=== PATIENT | male | born 1945 | race Caucasian/White ===

== ENCOUNTER 2019-06-12 13:05 | Inpatient (IN) | payer OTHER ==
--- NOTE | 2019-06-12 13:55 | ED ---
Lower Extremity - HPI Summary HPI Summary: This patient is a 74 year old M presenting to ED with a chief complaint of R leg pain since waking up this morning. Patient reports redness and swelling of the R thigh this morning. Patient developed ankle pain throughout the day. This has never happened before. The patient rates the pain 5/10 in severity. Symptoms aggravated by touching the leg and bearing weight. Symptoms alleviated by nothing. Patient reports fever at 100.5 F. - History of Current Complaint Chief Complaint: EDExtremityLower Stated Complaint: PAIN IN RIGHT LEG PER PT Time Seen by Provider: 06/12/19 13:43 Hx Obtained From: Patient Onset of Pain: Hours - Waking up this morning Onset/Duration: Worse Since - Now spread to ankle Severity Initially: Moderate Severity Currently: Moderate Pain Intensity: 5 Pain Scale Used: 0-10 Numeric Timing: Constant, Lasting Hours - Since this morning Location: Is Discrete @ - Right thigh, leg, and ankle Associated Signs And Symptoms: Positive: Swelling, Redness, Fever Aggravating Factor(s): Weight Bearing, Other - Touching the leg Alleviating Factor(s): Nothing - Allergies/Home Medications Allergies/Adverse Reactions: Allergies Allergy/AdvReac Type Severity Reaction Status Date / Time Penicillins Allergy Severe Anaphylatic Verified 06/12/19 13:12 Shock Home Medications: Home Medications Ibuprofen TAB* [Advil TAB*] 200 mg PO Q8H PRN 06/12/19 [History Confirmed ] PMH/Surg Hx/FS Hx/Imm Hx Endocrine/Hematology History: Denies: Hx Diabetes Cardiovascular History: Denies: Hx Deep Vein Thrombosis, Hx Hypertension Respiratory History: Denies: Hx Pulmonary Embolism Infectious Disease History: No Infectious Disease History: Denies: Traveled Outside the [place] in Last 30 Days - Family History Known Family History: Positive: Other - DVT after surgery, CVA - Social History Alcohol Use: None Hx Substance Use: No Substance Use Type: Reports: None Hx Tobacco Use: No Smoking Status (MU): Never Smoked Tobacco Review of Systems Positive: Fever - 100.5 F Musculoskeletal: Other - R thigh, leg, and ankle erythema and swelling All Other Systems Reviewed And Are Negative: Yes Physical Exam - Summary Physical Exam Summary: Constitutional: Well-developed, Well-nourished, Alert. (-) Distressed Skin: Warm, Dry HENT: Normocephalic; Atraumatic Eyes: Conjunctiva normal Neck: Musculoskeletal ROM normal neck. (-) JVD, (-) Stridor, (-) Nuchal rigidity Cardio: Rhythm regular, rate normal, Heart sounds normal; Intact distal pulses; Radial pulses are 2+ and symmetric. (-) Murmur Pulmonary/Chest wall: Effort normal. (-) Respiratory distress, (-) Wheezes, (-) Rales Abd: Soft, (-) tenderness, (-) Distension, (-) Guarding, (-) Rebound Musculoskeletal: tenderness to palpation to the calf and inner thigh of the right leg, 2+ DP pulse of the right leg, circumferential erythema from the proximal ankle to the knee with streaking erythema of the right anterior thigh c /w lymphangitis Lymph: (-) Cervical adenopathy Neuro: Alert, Oriented x3 Psych: Mood and affect Normal Triage Information Reviewed: Yes Vital Signs On Initial Exam: Initial Vitals Temp Pulse Resp BP Pulse Ox 100.5 F 90 16 135/72 95 06/12/19 13:06 06/12/19 13:06 06/12/19 13:06 06/12/19 13:06 06/12/19 13:06 Vital Signs Reviewed: Yes Diagnostics - Vital Signs Vital Signs Temp Pulse Resp BP Pulse Ox 06/12/19 13:06 100.5 F 90 16 135/72 95 - Laboratory Result Diagrams: 06/12/19 14:07 06/12/19 14:04 Lab Statement: Any lab studies that have been ordered have been reviewed, and results considered in the medical decision making process. - Radiology RLE XR Radiology Interpretation Completed By: Radiologist Summary of Radiographic Findings: 1. Negative for fracture or articular malalignment. 2. No periosteal reaction, osteolysis, or suspicious osteosclerosis evident to indicate osteomyelitis. 3. Mild nonfocal soft tissue edema. Negative for subcutaneous emphysema. Dr. Whittaker has reviewed this radiology report. R femur XR Radiology Interpretation Completed By: Radiologist Summary of Radiographic Findings: 1. Negative for fracture or malalignment. 2. Negative for periosteal reaction, osteolysis, or suspicious osteosclerosis to raise concern for osteomyelitis. 3. Diffuse soft tissue swelling. No subcutaneous emphysema evident. Dr. Whittaker has reviewed this radiology report. - Ultrasound DVT Ultrasound Interpretation Completed By: Radiologist Summary of Ultrasound Findings: No evidence for RIGHT lower extremity deep venous thrombosis. Dr. Whittaker has reviewed this radiology report. Re-Evaluation - Re-Evaluation First Eval Re-Evaluation Time: 15:47 Comment: Discussed results with patient. Neg free air on XR, low suspicion for deep space infection. Patient will be admitted to [facility] w dx of cellulitis. Pt understands and agrees with this plan. Lower Extremity Course/Dx - Course Course Of Treatment: 74-year-old male presents with right lower 70 erythema and pain for 1 day. Physical exam of the well-appearing male, second pressure erythema to the right lower extremity with trace edema, suspect cellulitis versus DVT. Will check labs and DVT ultrasound if the ultrasound is negative will treat with abx - Diagnoses Provider Diagnoses: Cellulitis - Physician Notifications Discussed Care Of Patient With: John Mendez Time Discussed With Above Provider: 15:41 Instructed by Provider To: Admit As Inpatient - Discussed patient case with Dr. Mendez, who accepted patient for admission to [facility]. Discharge - Sign-Out/Discharge Documenting (check all that apply): Patient Departure - Admit by Dr. Mendez Patient Received Moderate/Deep Sedation with Procedure: No - Discharge Plan Condition: Fair Disposition: ADMITTED TO [facility] Referrals: No Primary Care Phys,NOPCP [Primary Care Provider] - - Billing Disposition and Condition Condition: FAIR Disposition: Admitted to [facility] - Attestation Statements Document Initiated by Roderick: Yes Documenting Scribe: Cash Gr Provider For Whom Roderick is Documenting (Include Credential): Dhaval Whittaker MD Scribe Attestation: I, Cash Gr, scribed for Dhaval Whittaker MD on 06/12/19 at 1555. Scribe Documentation Reviewed: Yes Provider Attestation: The documentation as recorded by the Cash mireles accurately reflects the service I personally performed and the decisions made by me, Dhaval Whittaker MD Status of Scribcal Document: Viewed
[2019-06-12 14:13] LABS: ABS Basophils 0.2 10^3/ul (0-0.2); ABS Lymphocytes 0.5 10^3/ul (1.0-4.8); ABS Monocytes 1.3 10^3/ul (0-0.8); Eosinophil % 0.1 %; Hematocrit 42 % (42-52); Hemoglobin 14.2 g/dL (14.0-18.0); Lymphocyte % 2.5 %; Mean Corpuscular HGB Conc 34 g/dL (31-36); Mean Corpuscular Hemoglobin 30 pg (27-31); Mean Corpuscular Volume 89 fL (80-94); Platelet Count 196 10^3/uL (150-450); Red Blood Count 4.69 10^6 /uL (4.18-5.48); Red Cell Distribution Width 14 % (10-15)
[2019-06-12 14:29] LABS: Albumin 4.2 g/dL (3.2-5.2); Albumin/Globulin Ratio 1.8 (1-3); BUN/Creatinine Ratio 15.8 (8-20); Calcium 9.1 mg/dL (8.6-10.3); EGFR African American 93.8 (>60); EGFR Non-African American 77.5 (>60); Globulin 2.3 g/dL (2-4); Potassium 3.6 mmol/L (3.5-5.0); Total Protein 6.5 g/dL (6.4-8.9)
[2019-06-12] MEDS ORDERED: Acetaminophen TAB* 325 MG PO ONE (14:29)
[2019-06-12 14:37] LABS: INR 1.16 (0.82-1.09)
[2019-06-12] MEDS ORDERED: Clindamycin 600 MG/D5W BAG(*) 600 MG/50 ML BAG IV ONE (14:48)
[2019-06-12] MEDS ORDERED: Clindamycin 600 MG IVPREMIX(* 600 MG/50 ML SDV IV ONE (16:00)
[2019-06-12] MEDS ORDERED: Senna TAB 8.6 mg* TAB PO PRN (17:36)
[2019-06-12] MEDS ORDERED: Ondansetron INJ* 2 MG/ML VIAL IV PRN (17:36)
[2019-06-12] MEDS ORDERED: Acetaminophen TAB* 325 MG PO PRN (17:36)
[2019-06-12] MEDS ORDERED: Al Hydrox/Mg Hydrox/Simet LIQ* 30 ML UDC PO PRN (17:36)
[2019-06-12] MEDS ORDERED: diPHENhydraMINE IV* 50 MG/ML 1 ml VIAL (BENADRYL) IV PRN (17:42)
[2019-06-12] MEDS ORDERED: NS 0.9% 1000 ML** 1,500 ML IV ONE (17:43)
[2019-06-12] MEDS: Enoxaparin(*) 40 MG/0.4 ML SYR SUBCUT SCH (19:56)
--- NOTE | 2019-06-12 20:50 | HP ---
ADMISSION HISTORY AND PHYSICAL: DATE OF ADMISSION: 06/12/19 PROVIDER: RUSS Lopez. PRIMARY CARE PROVIDER: Physician in [place], name unknown to patient ATTENDING PHYSICIAN WHILE IN THE HOSPITAL: Dr. John Mendez * (dictated by RUSS Lopez). CHIEF COMPLAINT: Right lower extremity redness. HISTORY OF PRESENT ILLNESS: Bola Mcgarry is a 74-year-old white male with past medical history significant only for osteoarthritis who presents to the emergency department today due to right lower extremity erythema. The patient reports that he noticed the right lower extremity swelling when he woke up this morning. He admits that he was feeling shaking chills this morning as well and did not check his temperature. He chronically has bilateral lower extremity edema and he reports that he has never been diagnosed with heart failure. He says that he had an EKG recently that was abnormal, but is unsure of the findings. Because the patient is from [place], I do not have previous EKG for comparison. Otherwise, the patient has no complaints. He is in the area for a [employer] study camp of some sort and his family lives here. He denies chest pain, difficulty breathing, abdominal pain, difficulty with urination, hematuria, lightheadedness, and new visual changes. EMERGENCY DEPARTMENT COURSE: When the patient arrived to the emergency department, his vital signs were temperature of 100.5, pulse rate 90, respiratory rate 16, oxygen saturation 95%, blood pressure 135/72. The patient had blood cultures drawn prior to administration of clindamycin. He was also given acetaminophen 650 one time. PAST MEDICAL HISTORY: Osteoarthritis. PAST SURGICAL HISTORY: 1. Right inguinal hernia repair. 2. Resection of benign tumor of face. HOME MEDICATION: Ibuprofen 200 mg p.o. q.8 hours p.r.n. for joint pain. ALLERGIES: Throat redness as a reaction to PENICILLIN. FAMILY HISTORY: Mother in her 80s due to complications related to stroke. Father decreased of a PE after surgery at age 47. SOCIAL HISTORY: The patient lives in [place]. 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 He is and has 2 children. He denies drinking, tobacco use, drug use. REVIEW OF SYSTEMS: An 11-point review of systems was completed and all pertinent positives and negatives are above in the HPI and other systems are negative. PHYSICAL EXAMINATION GENERAL: Obese elderly white male, lying upright in hospital bed, appearing comfortable, in no acute distress. Sister and son are at bedside. HEENT: Head: Normocephalic, atraumatic. Eyes: PERRL. Sclerae anicteric. ENT: Mucous membranes moist. NECK: Supple without JVD. LUNGS: Clear to auscultation throughout. CARDIO: Regular rate and rhythm without murmurs, rubs, or gallops. ABDOMEN: Soft, nontender, and nondistended without hepatosplenomegaly. EXTREMITIES: +1 pitting edema to bilateral lower extremities up to mid tibia. Diffuse erythema throughout right lower extremity between ankle and knee, which is more erythematous around the ankle. One line of streaking up the medial thigh on the right lower extremity. No clubbing or cyanosis. NEUROLOGIC: The patient is alert and oriented x3. No focal deficits. Able to move all extremities. SKIN: Warm, dry, and intact. DIAGNOSTIC STUDIES/LAB DATA: White blood cell count 21, red blood cell count 14.2, hemoglobin 14.2, hematocrit 42, platelet count 196. Sodium 136, potassium 3.6, chloride 103, carbon dioxide 23, anion gap 10, BUN 15, creatinine 0.95, glucose 118, lactic acid 2.0. Total bilirubin 2.00, AST 18, ALT 18, alk phos 58. CRP 36.2. INR 1.16. Venous Doppler, impression: No evidence for right lower extremity DVT. Femur x-ray: Negative for fracture or malalignment. Negative for periosteal reaction, osteolysis, or suspicious osteosclerosis to raise concern for osteomyelitis or diffuse soft tissue swelling. No subcutaneous emphysema evident. Right lower extremity x-ray. Impression: Negative for fracture or articular involvement. Negative for periosteal reaction, osteolysis, or suspicious osteosclerosis to raise concern for osteomyelitis or diffuse soft tissue swelling. No subcutaneous emphysema evident. ASSESSMENT AND PLAN: Bola Mcgarry is a 74-year-old white male with past medical history of osteoarthritis who presents to the emergency department for right lower extremity erythema. The patient will be admitted in observation for : 1. Right lower extremity edema. This is likely cellulitis. There are 2 very small excoriations to the patient's right lower extremity which is likely the cause of the cellulitis. He does have chronic lower extremity edema due to possibly venous insufficiency, which is possibly also contributing to his cellulitis. DVT has been ruled out. 2. Severe sepsis. This is likely secondary to cellulitis. The patient had fever and leukocytosis as well as bilirubin elevated too. Because I do not have outpatient medical records, I am unsure if this is chronic; however, this does meet sepsis criteria. Lactate is elevated enough to meet sepsis criteria. Fluid bolus was not given in the emergency department. Because of the patient 's chronic lower extremity edema, it may be possible that he has some underlying heart failure that is undiagnosed, though this may also be venous insufficiency. Either way, I would prefer not to give the full sepsis bolus at this time and instead, I will give 15 mg/kg of normal saline. He has been given clindamycin in the emergency department and I will continue ceftriaxone tomorrow. The patient has a history of reaction to penicillin and I will give ceftriaxone tomorrow, and I have warned the patient to please notify nursing if he experiences difficulty breathing, throat swelling, lip swelling, tongue swelling. Tylenol will be continued p.r.n. for fever. I will repeat bilirubin tomorrow. Blood cultures will be followed. 3. Possible history of abnormal EKG. The patient told me that he possibly had an abnormal EKG, though unable to describe further. I will check an EKG now. 4. Osteoarthritis. The patient's only past medical history is osteoarthritis, for which he takes ibuprofen daily. I counseled him about the risk of gastrointestinal bleed with this regimen. I will also hold his ibuprofen, which he takes at home, because I would prefer to monitor if the patient has fever. 5. FEN. The patient may have a regular diet. Electrolytes are within normal limits. 6. Code status. The patient is a full code. 7. DVT prophylaxis. The patient has a DVT risk score of 2. I will give him Lovenox. TIME SPENT: Approximately 45 minutes were spent on this admission, approximately half of this time was spent at the bedside. This case has been reviewed by my attending, Dr. John Mendez, and he agrees with this plan of care. DYLON ARMENDARIZ, RUSS [id number]/[facility] #: [id number] [facility]ITAL[facility]
[2019-06-13] MEDS: cefTRIAXone(*) 1 GM in NS 0.9% 50 ML* 50 ML IVPB SCH (05:31)
[2019-06-13 06:07] LABS: ABS Basophils 0.1 10^3/ul (0-0.2); ABS Lymphocytes 0.8 10^3/ul (1.0-4.8); ABS Monocytes 0.9 10^3/ul (0-0.8); ABS Neutrophils 15.9 10^3/ul (1.5-7.7); Hematocrit 42 % (42-52); Hemoglobin 14.3 g/dL (14.0-18.0); Lymphocyte % 4.8 %; Mean Corpuscular HGB Conc 34 g/dL (31-36); Mean Corpuscular Hemoglobin 31 pg (27-31); Mean Corpuscular Volume 90 fL (80-94); Mean Platelet Volume 8.6 fL (7.4-10.4); Platelet Count 173 10^3/uL (150-450); Red Blood Count 4.68 10^6 /uL (4.18-5.48); Red Cell Distribution Width 14 % (10-15); White Blood Count 17.8 10^3/uL (3.5-10.8)
[2019-06-13 06:24] LABS: Albumin/Globulin Ratio 1.7 (1-3); EGFR African American 106.6 (>60); EGFR Non-African American 88.1 (>60); Globulin 2.3 g/dL (2-4); Potassium 3.8 mmol/L (3.5-5.0); Total Bilirubin 1.7 mg/dL (0.2-1.0); Total Protein 6.3 g/dL (6.4-8.9)
[2019-06-13 09:05] LABS: Indirect Bilirubin 1.4 mg/dL (0.3-1.0)
[2019-06-13 10:44] LABS: CRP High Sensitivity 151.03 mg/L (<2.00)
[2019-06-13] MEDS ORDERED: Polyethylene Glycol 3350* 17 GM PACKET PO PRN (15:47)
--- NOTE | 2019-06-13 19:24 | PN ---
Subjective Date of Service: 06/13/19 Interval History: Patient feeling well today. Denies fever/chills, chest pain, difficulty breathing, abd pain, n/v. He is comfortable with having to stay another night and asked his son to bring his bible. Patient tells nurse he has had ongoing issues with poor initiation of urinary stream which feels worse today. He is able to make urine and denies dysuria and hematuria. Objective Active Medications: Acetaminophen (Tylenol Tab*) 650 mg PO Q4H PRN PRN Reason: MILD PAIN or TEMP > 100.4 Last Admin: 06/13/19 16:39 Dose: 650 mg Al Hydrox/Mg Hydrox/Simethicone (Maalox Plus*) 30 ml PO Q6H PRN PRN Reason: INDIGESTION Diphenhydramine HCl (Benadryl Iv*) 50 mg IV Q6H PRN PRN Reason: anaphylaxis Enoxaparin Sodium (Lovenox(*)) 40 mg SUBCUT Q24H [facility] Last Admin: 06/12/19 19:56 Dose: 40 mg Ceftriaxone Sodium 1 gm/ (Sodium Chloride) 50 mls @ 100 mls/hr IVPB Q24H [facility] Last Admin: 06/13/19 05:31 Dose: 100 mls/hr Ondansetron HCl (Zofran Inj*) 4 mg IV Q4H PRN PRN Reason: NAUSEA/VOMITING Polyethylene Glycol/Electrolytes (Miralax*) 17 gm PO DAILY PRN PRN Reason: CONSTIPATION Last Admin: 06/13/19 16:41 Dose: 17 gm Senna (Senokot 8.6 Mg Tab*) 1 tab PO BID PRN PRN Reason: CONSTIPATION Tamsulosin HCl (Flomax Cap*) 0.4 mg PO BEDTIME [facility] Vital Signs - 8 hr 06/13/19 06/13/19 11:53 15:15 Temperature 98.1 F 99.0 F Pulse Rate 67 65 Respiratory 24 22 Rate Blood Pressure 132/59 155/72 (mmHg) O2 Sat by Pulse 94 95 Oximetry Oxygen Devices in Use Now: None Appearance: Obese, elderly white male sitting in chair appearing in NAD Eyes: No Scleral Icterus, PERRLA Ears/Nose/Mouth/Throat: Mucous Membranes Moist Neck: NL Appearance and Movements; NL JVP Respiratory: Symmetrical Chest Expansion and Respiratory Effort, Clear to Auscultation Cardiovascular: NL Sounds; No Murmurs; No JVD, RRR Abdominal: - - abd soft, nontender, nondistended Extremities: No Clubbing, Cyanosis, - - trace edema to bilateral LEs pedally to lower third of tibia Skin: - - erythema is darker at right ankle and has spread inferior of ankle, addtionally streaking up thigh is darker; tenderness to palpation of ankle Neurological: Alert and Oriented x 3, NL Muscle Strength and Tone Result Diagrams: 06/13/19 05:41 06/13/19 05:41 Microbiology and Other Data: Microbiology 06/12/19 15:18 Aerobic Blood Culture - Preliminary Blood Venous No Growth Day 1 Anaerobic Blood Culture - Preliminary No Growth Day 1 06/12/19 15:21 Aerobic Blood Culture - Preliminary Blood Venous No Growth Day 1 Anaerobic Blood Culture - Preliminary No Growth Day 1 Assess/Plan/Problems-Billing Assessment: 74 yo male with PMHx OA is visiting from [place] and reports c/o right LE erythema, found to have severe sepsis secondary to cellulitis. - Patient Problems (1) Severe sepsis Current Visit: Yes Status: Acute Code(s): A41.9 - SEPSIS, UNSPECIFIED ORGANISM; R65.20 - SEVERE SEPSIS WITHOUT SEPTIC SHOCK SNOMED Code(s): 92656007 Comment: -initially presenting with leukocytosis, fever, and bili of 2 -bili is downtrending, has been afebrile for 24 hrs, and leukocytosis is downtrending -2/2 cellulitis (2) Cellulitis Current Visit: Yes Status: Acute Code(s): L03.90 - CELLULITIS, UNSPECIFIED SNOMED Code(s): 379804098 Comment: -right LE cellulitis with streaking up right thigh -DVT ruled out with doppler -blood culture no growth to date -continue ceftriaxone, pt does not have MRSA risk factors -CRP elevated today compared to admission (151) -erythema appears worsened today, but signs of sepsis are improving and will continue current mgmt (3) Poor urinary stream Current Visit: Yes Status: Acute Code(s): R39.12 - POOR URINARY STREAM SNOMED Code(s): 312633418 Comment: -this is a chronic issue for this patient reportedly -started flomax (4) DVT prophylaxis Current Visit: Yes Status: Acute Code(s): Z29.9 - ENCOUNTER FOR PROPHYLACTIC MEASURES, UNSPECIFIED SNOMED Code(s): 301114591 Comment: -lovenox (5) Full code status Current Visit: Yes Status: Acute Code(s): Z78.9 - OTHER SPECIFIED HEALTH STATUS SNOMED Code(s): 984211832 Status and Disposition: inpatient pt will need f/u with care connections as he is in the area for 3 more weeks but is from [place]
[2019-06-13] MEDS ORDERED: Tamsulosin CAP* 0.4 MG PO SCH (21:00)
[2019-06-13] MEDS: Enoxaparin(*) 40 MG/0.4 ML SYR SUBCUT SCH (21:16)
[2019-06-14 06:15] LABS: Hematocrit 40 % (42-52); Hemoglobin 13.4 g/dL (14.0-18.0); Mean Corpuscular HGB Conc 33 g/dL (31-36); Mean Corpuscular Hemoglobin 30 pg (27-31); Mean Corpuscular Volume 89 fL (80-94); Mean Platelet Volume 8.2 fL (7.4-10.4); Platelet Count 181 10^3/uL (150-450); Red Blood Count 4.52 10^6 /uL (4.18-5.48); Red Cell Distribution Width 14 % (10-15); White Blood Count 11.5 10^3/uL (3.5-10.8)
[2019-06-14] MEDS: cefTRIAXone(*) 1 GM in NS 0.9% 50 ML* 50 ML IVPB SCH (06:16)
[2019-06-14 06:29] LABS: ABS Monocytes 1.1 10^3/ul (0-0.8); ABS Neutrophils 9.6 10^3/ul (1.5-7.7); Eosinophil % 0.2 %; Lymphocyte % 8.9 %
[2019-06-14 06:32] LABS: BUN/Creatinine Ratio 16.7 (8-20); Calcium 8.8 mg/dL (8.6-10.3); EGFR African American 108.1 (>60); EGFR Non-African American 89.3 (>60); Potassium 3.7 mmol/L (3.5-5.0)
[2019-06-14 07:38] LABS: CRP High Sensitivity 120.67 mg/L (<2.00)
[2019-06-14 11:01] LABS: Albumin 3.7 g/dL (3.2-5.2); Indirect Bilirubin 0.9 mg/dL (0.3-1.0); Total Bilirubin 1.1 mg/dL (0.2-1.0)
[2019-06-14 11:06] LABS: Albumin/Globulin Ratio 1.9 (1-3); Total Protein 5.7 g/dL (6.4-8.9)
[2019-06-14 11:59] VITALS: BP 125/53
--- NOTE | 2019-06-14 22:00 | DS ---
CC: MD in [place], [place]. Phone number [phone]. * DISCHARGE SUMMARY: DATE OF ADMISSION: 06/12/19 DATE OF DISCHARGE: 06/14/19 PRIMARY CARE PROVIDER: MD in [place], [place]. Phone number [phone]. ATTENDING PHYSICIAN WHILE IN THE HOSPITAL: Dr. Abdiel Maya * (dictated by RUSS Lopez). PRIMARY DIAGNOSES: 1. Right lower extremity cellulitis. 2. Severe sepsis secondary to right lower extremity cellulitis, sepsis resolved. SECONDARY DIAGNOSES: 1. Osteoarthritis. 2. Chronic lower extremity edema. PERTINENT LAB DATA: Initial leukocytosis 21, down trended to 11.5. Initial bilirubin 2. Bilirubin on the day of discharge 1.1. HISTORY OF PRESENT ILLNESS/HOSPITAL COURSE: Bola Mcgarry is a 74-year-old white male with a past medical history significant for osteoarthritis, who presents to the emergency department on 06/12/19 complaining of right lower extremity redness. Please see admitting history and physical dictated by myself for further information. During the patient's hospital stay, he was initially febrile and afterwards is afebrile. He initially received clindamycin and then afterward received IV ceftriaxone daily and did not have any allergic reaction and had a good response in regard to his symptoms of sepsis. Initially, he had an elevated bilirubin, which downtrended. O2 saturation has downtrended. The patient's CRP downtrended on final day as well. The patient on the second day of admission did have worsening of his erythema in his right lower extremity and on the date of discharge there was no worsening of his right lower extremity erythema. All other LFTs were normal and I do believe that his bilirubin elevation is related to sepsis. However, there is a possibility that he may have had an underlying elevated bilirubin he was not aware of. On the date of discharge, the patient is feeling well. He has no complaints. He denies fevers, chills, chest pain, difficulty breathing, abdominal pain, nausea or vomiting, and pain of the lower extremities. PHYSICAL EXAMINATION: General: Elderly white male, appearing in no acute distress. Head: Normocephalic, atraumatic. Eyes: Sclerae anicteric. ENT: Mucous membranes moist. Cardio: Regular rate and rhythm without murmurs, rubs , or gallops. Lungs: Clear to auscultation throughout. Abdomen: Soft, nontender, nondistended. Extremities: Erythema diffusely throughout the right lower extremity from just below the ankle to approximately the knee with some streaking from the knee to the groin on the medial aspect of the thigh. Not passing demarcation drawn the day prior. No clubbing or cyanosis. Trace pitting edema of bilateral lower extremity through the mid tibia, which the patient endorses as chronic. Neuro: Alert and oriented x3. No focal deficits. DISCHARGE PLAN: Diet: Regular, no restricted diet. Activity: The patient may return to normal activities as tolerated. The patient is visiting from [place] and will be here until the first week of July, visiting his sister. He will have a [facility] appointment setup for followup in 1 week. The patient advised to take antibiotics to completion. The patient advised to return to the emergency department if he is experiencing chest pain, difficulty breathing, fever, chills, worsening of his redness or new streaking. On followup with his primary care in [place], it would be of benefit for the patient to have repeat of his LFTs to ensure resolution of his elevated bilirubin and may be of benefit for him to have some workup regarding his chronic lower extremity edema including echocardiogram. DISCHARGE MEDICATIONS: Cefdinir 300 mg p.o. b.i.d. x7 days. Continued home medications: Ibuprofen 200 mg p.o. q.8 hours p.r.n. pain. CONDITION ON DISCHARGE: Stable. DISPOSITION: Home (initially discharged to where he is staying in [place]). TIME SPENT: Approximately 45 minutes was spent on this discharge, approximately half this time was spent at the bedside evaluating the patient and discussing discharge plan. RUSS LOPEZ [id number]/[facility] #: [id number] NATI
== END 2019-06-14 13:55 | disposition home or self-care (01) | DRG 872 ==
LOC: ED 13:05 → MED 17:36 → OBSVTOIN 06-13 11:00
PROVIDERS: ADMIT Internal Medicine; ATTEND Internal Medicine
DX: A41.9 Sepsis, unspecified organism (principal); L03.115 Cellulitis of right lower limb; M19.90 Unspecified osteoarthritis, unspecified site; E66.9 Obesity, unspecified; I87.2 Venous insufficiency (chronic) (peripheral); R39.12 Poor urinary stream; Z68.34 Body mass index [BMI] 34.0-34.9, adult; Z79.1 Long term (current) use of non-steroidal anti-inflammatories (NSAID); Z82.3 Family history of stroke
CPT/HCPCS: 36415; 80048; 80053; 80076; 82247; 82248; 83605; 85025; 85610; 86141; 87040; 93005; 99284; A9270-GY; G0378; J0696; J1650